=== PATIENT | female | born 1955 | race Caucasian/White ===

== ENCOUNTER 2020-05-11 10:41 | Emergency (ER) | payer MEDICARE ==
[~2020-05-11] VITALS: Ht 160 cm; Wt 55.0 kg
[2020-05-11 10:45] VITALS: BP 138/73
[2020-05-11] MEDS ORDERED: ACETAMINOPHEN 500 MG TABLET PO ONE (11:45)
--- NOTE | 2020-05-11 11:50 | PHYS DOC ---
Past Medical History Past Medical History: Seizure, Other Additional Past Medical Histor: neuropathy Past Surgical History: Cholecystectomy Additional Past Surgical Histo: skin grafts, L arm above the elbow amputation Smoking Status: Never Smoker Alcohol Use: Rarely General Adult EDM: Chief Complaint: TOE PROBLEM HPI: HPI: Patient is a 65 year old female with history of seizures who presents the ED today with 7 out of 10 left great toe pain that began this morning after she stubbed her toe on concrete while walking with no shoes. Patient has history of multiple hill years ago and has amputation of the left upper extremity as well as neuropathy to bilateral lower extremities. Patient states the pain is worse on touching her left great toe. She describes the pain as burning sensation. Denies anything specifically relieving the pain. Review of Systems: Review of Systems: Constitutional: Denies fever or chills. [] Musculoskeletal: Reports left great toe pain Integument: Denies rash. [] Neurologic: Denies headache, focal weakness or sensory changes. [] Psychiatric: Denies depression or anxiety. [] Heart Score: Risk Factors: Risk Factors: DM, Current or recent (<one month) smoker, HTN, HLP, family history of CAD, obesity. Risk Scores: Score 0 - 3: 2.5% MACE over next 6 weeks - Discharge Home Score 4 - 6: 20.3% MACE over next 6 weeks - Admit for Clinical Observation Score 7 - 10: 72.7% MACE over next 6 weeks - Early Invasive Strategies Current Medications: Current Medications Medications (Trade) Dose Ordered Sig/Jonnie Start Time Stop Time Status Last Admin Dose Admin Acetaminophen (Tylenol) 1,000 mg 1X ONCE 05/11/20 11:45 05/11/20 11:46 Allergies: Allergies: Allergies Coded Allergies Type Severity Reaction Last Updated Verified prochlorperazine Allergy Intermediate aggitation 05/11/20 Yes Sulfa (Sulfonamide Antibiotics) Allergy Mild rash 05/11/20 Yes Physical Exam: PE: Constitutional: Well developed, well nourished, no acute distress, non-toxic appearance. [] Skin: Warm, dry, no erythema, no rash. [] Back: No tenderness, no CVA tenderness. [] Extremities: Left great toe with chronic flexion of the toe from previous injuries. No new deformities. Slight soft tissue swelling noted on the posterior end of the left great toe. Poor sensation to the left great toe due to neuropathy. +2 left pedal pulse. Limited range of motion to the left great toe due to chronic flexion. Cap refill less than 2 seconds to left great toe. Neurologic: Alert and oriented X 3, normal motor function, normal sensory function, no focal deficits noted. [] Psychologic: Affect normal, judgement normal, mood normal. [] Current Patient Data: Vital Signs: Vital Signs Date Time Temp Pulse Resp B/P (MAP) Pulse Ox O2 Delivery O2 Flow Rate FiO2 05/11/20 10:45 98.8 77 12 138/73 (94) 96 Room Air 98.8 EKG: EKG: [] Radiology/Procedures: Radiology/Procedures: []PROCEDURE: FOOT LEFT 3V EXAM: Left foot, 3 views. HISTORY: Blunt trauma. COMPARISON: None. FINDINGS: 3 views of the left foot are obtained. No displaced fracture is seen. There is mild first metatarsal phalangeal joint spurring and subchondral sclerosis. No foreign body is seen. IMPRESSION: 1. No acute osseous finding. 2. Mild first metatarsal phalangeal joint osteoarthritis. Electronically signed by: Silva Dinh MD (05/11/2020 11:51 AM) [id number] DICTATED and SIGNED BY: SILVA DINH MD DATE: 05/11/20 1151 Course & Med Decision Making: Course & Med Decision Making Pertinent Labs and Imaging studies reviewed. (See chart for details) This is a 65-year-old female patient presenting to the ED today with left great toe pain that began today after she stubbed her toe walking. Left foot x-rays interpreted by radiologist were negative for any acute findings, noted for DJD of the left great toe. Patient was provided orthopedic shoe by the ED RN, neurovascular exam done by me is negative. Ice elevation encouraged. OTC pain relievers. Follow-up with orthopedic doctor in 1 to 2 weeks Kirill Disclaimer: Dragmikaela Disclaimer: This electronic medical record was generated, in whole or in part, using a voice recognition dictation system. Departure Departure Impression: Primary Impression: Contusion of great toe, left Qualified Codes: S90.112A - Contusion of left great toe without damage to nail, initial encounter Disposition: HOME, SELF-CARE Condition: STABLE Referrals: NO PCP (PCP) THUAN GONZALEZ II, MD follow up in 1-2 weeks Patient Instructions: Contusion, [id number] Additional Instructions: You were seen for left great toe injury, your left foot x-rays are negative for any acute findings. Wear the Orthopedic shoe provided as tolerated. Try to ice and elevate the extremity. Take [id number] pain relievers as needed for pain. Follow-up with your own doctor or the provided orthopedic doctor in 1 to 2 weeks if pain persists Justicifation of Admission Dx: Justifications for Admission: Justification of Admission Dx: N/A EFRAIN NARAYANAN APRN May 11, 2020 11:50
--- NOTE | 2020-05-11 11:54 | RAD ---
EXAM: Left foot, 3 views. HISTORY: Blunt trauma. COMPARISON: None. FINDINGS: 3 views of the left foot are obtained. No displaced fracture is seen. There is mild first metatarsal phalangeal joint spurring and subchondral sclerosis. No foreign body is seen. IMPRESSION: 1. No acute osseous finding. 2. Mild first metatarsal phalangeal joint osteoarthritis. Electronically signed by: Silva Sam MD (05/11/2020 11:51 AM) [id number]
== END 2020-05-11 12:05 | disposition home or self-care (01) ==
LOC: ER 10:41
DX: S90.112A Contusion of left great toe without damage to nail, initial encounter (principal); M19.072 Primary osteoarthritis, left ankle and foot; G62.89 Other specified polyneuropathies; Z88.2 Allergy status to sulfonamides; Z88.8 Allergy status to other drugs, medicaments and biological substances; W22.8XXA Striking against or struck by other objects, initial encounter; Y93.89 Activity, other specified; Y92.89 Other specified places as the place of occurrence of the external cause; Y99.8 Other external cause status
CPT/HCPCS: 73630; 99283